=== PATIENT | female | born 1970 | race Hispanic/Latino ===

== ENCOUNTER 2018-02-13 08:03 | Inpatient (IN) | payer MEDICARE ==
[2018-02-13] VITALS (25 sets, daily range): BP systolic 79–129; BP diastolic 37–85
[~2018-02-13] VITALS: Ht 149.9 cm; Wt 70.9 kg
[2018-02-13] MEDS: SODIUM CHLORIDE 0.9% 1000ML 1,000 ML IV SCH ×2 (14:09→20:53)
[2018-02-13] MEDS ORDERED: LACTULOSE 20 GM/30 ML UDCUP PO PRN (14:15)
[2018-02-13] MEDS ORDERED: ONDANSETRON HCL 4 MG/2 ML VIAL IV PRN (14:15)
[2018-02-13] MEDS ORDERED: MORPHINE SULFATE 2 MG/ML 1ML SYG IV PRN (14:15)
[2018-02-13 14:43] LABS: BASOPHILS % (AUTO) 0.9 % (0.0-5.0); EOSINOPHILS % (AUTO) 0.1 % (0.0-8.0); HEMATOCRIT 37.9 % (36-48); LYMPHOCYTES % (AUTO) 32.2 % (21.0-51.0); MEAN CORPUSCULAR HEMOGLOBIN 34.6 pg (27.0-33.0); MEAN CORPUSCULAR HGB CONC 33.4 g/dL (32.0-36.0); MEAN CORPUSCULAR VOLUME 103.6 fL (79-99); MONOCYTES % (AUTO) 3.6 % (3.0-13.0); NEUTROPHILS % (AUTO) 63.2 % (40.0-77.0); PLATELET COUNT (AUTO) 267 K/uL (130-400); RED BLOOD CELL COUNT(AUTO) 3.66 MIL/uL (4.00-5.50); WHITE BLOOD COUNT (AUTO) 6.4 K/uL (4.8-10.8)
[2018-02-13 15:03] LABS: ALANINE AMINOTRANSFERASE 18 U/L (12-78); ALBUMIN 2.7 g/dL (3.5-5.0); ASPARTATE AMINOTRANSFERASE 16 U/L (10-37); BILIRUBIN,TOTAL 0.2 mg/dL (0.2-1.0); CARBON DIOXIDE 30 mmol/L (21-32); CHLORIDE 109 mmol/L (101-111); CREATINE KINASE, TOTAL 10 U/L (21-232); CREATININE 0.6 mg/dL (0.5-1.5); GLOMERULAR FILTR. RATE CALC 113 mL/min (>60); GLUCOSE,RANDOM 83 mg/dL (70-105); MYOGLOBIN 18 ng/mL (10-92); POTASSIUM 3.1 mmol/L (3.5-5.1); SODIUM SERUM 146 mmol/L (136-145); THYROID STIMULATING HORMONE 1.27 uIU/mL (0.36-3.74); TOTAL PROTEIN, SERUM 6.7 g/dL (6.0-8.3); TROPONIN I < 0.04 ng/mL (0.00-0.06); UREA NITROGEN, BLOOD 6 mg/dL (7-18)
[2018-02-13 15:05] LABS: HEMOGLOBIN A1C 5.1 % (4.0-6.0)
[2018-02-13 15:08] LABS: B-TYPE NATRIURETIC PEPTIDE 149 pg/mL (0-100)
[2018-02-13 15:16] LABS: INR 1.05 (0.85-1.15); PARTIAL THROMBOPLASTIN TIME 27.7 SEC (26.3-35.5)
[2018-02-13] MEDS ORDERED: MIDAZOLAM HCL 1 MG/ML 2ML VIAL ONE (16:18)
[2018-02-13] MEDS ORDERED: MEPERIDINE-PF 25 MG/ML SYG ONE (16:19)
[2018-02-13] MEDS ORDERED: CEFAZOLIN SODIUM 1 GM VIAL ONE (16:30)
[2018-02-13] MEDS ORDERED: BUPIVACAINE/PF 0.25% 50ML VIAL IJ ONE (16:33)
[2018-02-13] MEDS ORDERED: LIDOCAINE HCL 1% MDV 50ML VIAL ONE (16:33)
[2018-02-13] MEDS ORDERED: OCTYL 2-CYANOACRYLATE 1 EACH TP ONE (16:59)
[2018-02-13] MEDS ORDERED: SODIUM CHLORIDE 3% FOR INHALATION 4 ML/AMP VIAL.NEB IH ONE (18:12)
[2018-02-13] MEDS: IPRATROPIUM/ALBUTEROL SULFATE 3 ML SOLUTION IH SCH (18:47)
[2018-02-13] MEDS ORDERED: AZITHROMYCIN 500MG+NS 250ML 250 ML IV SCH (20:30)
[2018-02-13] MEDS: FAMOTIDINE/PF 20 MG/2 ML VIAL IV SCH (20:45)
[2018-02-13 22:53] LABS: CREATINE KINASE, TOTAL 26 U/L (21-232); MYOGLOBIN 22 ng/mL (10-92); TROPONIN I < 0.04 ng/mL (0.00-0.06)
[2018-02-14] MEDS: AZITHROMYCIN 500MG+NS 250ML 250 ML IV SCH ×2 (00:02→21:26)
[2018-02-14] MEDS ORDERED: SODIUM CHLORIDE 3% FOR INHALATION 4 ML/AMP VIAL.NEB IH ONE ×2 (00:34→06:04)
[2018-02-14] MEDS: IPRATROPIUM/ALBUTEROL SULFATE 3 ML SOLUTION IH SCH ×5 (01:02→23:47)
[2018-02-14] MEDS: CEFAZOLIN SODIUM 1 GM VIAL IVP SCH ×2 (02:58→10:05)
[2018-02-14 04:00] VITALS: BP 79/49
[2018-02-14] MEDS ORDERED: PHARMACY COMMUNICATION MISC SCH (06:30)
[2018-02-14 06:37] LABS: HEMATOCRIT 36.8 % (36-48); MEAN CORPUSCULAR HEMOGLOBIN 34.5 pg (27.0-33.0); MEAN CORPUSCULAR HGB CONC 33.1 g/dL (32.0-36.0); MEAN CORPUSCULAR VOLUME 104.4 fL (79-99); NUCLEATED RED BLOOD CELLS 0.1 % (0.0-0.19); PLATELET COUNT (AUTO) 187 K/uL (130-400); RED BLOOD CELL COUNT(AUTO) 3.52 MIL/uL (4.00-5.50); RED CELL DISTRIBUTION WIDTH 15.4 % (11.0-15.5); WHITE BLOOD COUNT (AUTO) 5.4 K/uL (4.8-10.8)
[2018-02-14 06:54] LABS: CARBON DIOXIDE 26 mmol/L (21-32); CHLORIDE 110 mmol/L (101-111); CREATINE KINASE, TOTAL 18 U/L (21-232); CREATININE 0.6 mg/dL (0.5-1.5); GLOMERULAR FILTR. RATE CALC 113 mL/min (>60); GLUCOSE,RANDOM 84 mg/dL (70-105); MYOGLOBIN 23 ng/mL (10-92); POTASSIUM 3.1 mmol/L (3.5-5.1); SODIUM SERUM 144 mmol/L (136-145); TROPONIN I < 0.04 ng/mL (0.00-0.06); UREA NITROGEN, BLOOD 10 mg/dL (7-18)
[2018-02-14 07:00] VITALS: BP 118/45
[2018-02-14] MEDS ORDERED: POTASSIUM CHLORIDE 20 MEQ ERTAB PO SCH (09:30)
[2018-02-14] MEDS: FAMOTIDINE/PF 20 MG/2 ML VIAL IV SCH ×2 (10:05→21:27)
[2018-02-14] MEDS: ENOXAPARIN SODIUM 40 MG/0.4 ML SYRINGE SQ SCH (10:06)
[2018-02-14] MEDS: SODIUM CHLORIDE 0.9% 1000ML 1,000 ML IV SCH ×2 (10:20→22:23)
[2018-02-14 11:00] VITALS: BP 94/48
[2018-02-14] MEDS: SODIUM CHLORIDE 3% FOR INHALATION 4 ML/AMP VIAL.NEB IH SCH ×2 (11:28→19:02)
[2018-02-14] MEDS: METHYLPREDNISOLONE SOD SUCC 40MG/ML 1ML IVP SCH ×2 (12:39→21:27)
[2018-02-14] MEDS: ACETAMINOPHEN 325 MG TAB PO PRN (15:09)
[2018-02-14 16:00] VITALS: BP 110/53
[2018-02-14 19:00] VITALS: BP 99/60
[2018-02-14 23:00] VITALS: BP 118/64
[2018-02-15] MEDS: ACETAMINOPHEN 325 MG TAB PO PRN (02:04)
[2018-02-15 03:00] VITALS: BP 97/55
[2018-02-15] MEDS: METHYLPREDNISOLONE SOD SUCC 40MG/ML 1ML IVP SCH ×3 (04:02→20:00)
[2018-02-15] MEDS: SODIUM CHLORIDE 0.9% 1000ML 1,000 ML IV SCH (04:04)
[2018-02-15 04:14] LABS: HEMATOCRIT 30.6 % (36-48); MEAN CORPUSCULAR HEMOGLOBIN 35.4 pg (27.0-33.0); MEAN CORPUSCULAR HGB CONC 34.2 g/dL (32.0-36.0); MEAN CORPUSCULAR VOLUME 103.6 fL (79-99); PLATELET COUNT (AUTO) 199 K/uL (130-400); RED BLOOD CELL COUNT(AUTO) 2.96 MIL/uL (4.00-5.50); RED CELL DISTRIBUTION WIDTH 15.3 % (11.0-15.5); WHITE BLOOD COUNT (AUTO) 6.9 K/uL (4.8-10.8)
[2018-02-15 04:25] LABS: CREATININE 0.6 mg/dL (0.5-1.5); POTASSIUM 3.5 mmol/L (3.5-5.1)
[2018-02-15] MEDS: IPRATROPIUM/ALBUTEROL SULFATE 3 ML SOLUTION IH SCH ×3 (06:56→19:13)
[2018-02-15 07:00] VITALS: BP 120/66
[2018-02-15] MEDS ORDERED: PHEN100C9 PO (10:23)
[2018-02-15] MEDS ORDERED: FURO20TA4 PO (10:23)
[2018-02-15] MEDS ORDERED: OLAN7.5T9 PO (10:23)
[2018-02-15] MEDS ORDERED: ZONI25CA3 PO (10:23)
[2018-02-15] MEDS ORDERED: POTA-79 PO (10:23)
[2018-02-15] MEDS ORDERED: EZET10TA26 PO (10:23)
[2018-02-15] MEDS ORDERED: LEVO100T12 PO (10:23)
[2018-02-15] MEDS ORDERED: LORA10TA7 PO (10:23)
[2018-02-15] MEDS ORDERED: DIVA-76 PO (10:23)
[2018-02-15] MEDS ORDERED: MONT10TA24 PO (10:23)
[2018-02-15] MEDS ORDERED: ERGO500014 PO (10:23)
[2018-02-15] MEDS ORDERED: PRAV40TA3 PO (10:23)
[2018-02-15] MEDS ORDERED: LEVE750T10 PO (10:23)
[2018-02-15] MEDS: FAMOTIDINE/PF 20 MG/2 ML VIAL IV SCH ×2 (10:33→22:16)
[2018-02-15] MEDS: ENOXAPARIN SODIUM 40 MG/0.4 ML SYRINGE SQ SCH (10:34)
[2018-02-15 11:00] VITALS: BP 98/55
[2018-02-15 11:24] LABS: PHENYTOIN (DILANTIN) 16.6 mcg/mL (10.0-20.0)
[2018-02-15] MEDS: SODIUM CHLORIDE 3% FOR INHALATION 4 ML/AMP VIAL.NEB IH SCH ×2 (11:31→19:39)
[2018-02-15 11:56] LABS: VALPROIC ACID < 3 mcg/mL (50-100)
[2018-02-15] MEDS: PHENYTOIN SODIUM 100 MG ERCAP PO SCH ×3 (12:23→22:16)
[2018-02-15] MEDS: ZONISAMIDE 100 MG PO SCH ×2 (12:31→21:00)
[2018-02-15 16:00] VITALS: BP 112/66
[2018-02-15 20:36] VITALS: BP 98/54
[2018-02-15] MEDS: OLANZAPINE 5 MG TAB PO SCH (22:15)
[2018-02-15] MEDS: DIVALPROEX SODIUM 250 MG TABLET.DR PO SCH (22:15)
[2018-02-15] MEDS: LEVETIRACETAM 500 MG TABLET PO SCH (22:16)
[2018-02-15] MEDS: AZITHROMYCIN 500MG+NS 250ML 250 ML IV SCH (22:18)
[2018-02-15 23:43] VITALS: BP 116/60
[2018-02-16] MEDS: IPRATROPIUM/ALBUTEROL SULFATE 3 ML SOLUTION IH SCH ×5 (02:25→23:15)
[2018-02-16 04:09] VITALS: BP 116/70
[2018-02-16] MEDS: METHYLPREDNISOLONE SOD SUCC 40MG/ML 1ML IVP SCH ×3 (04:18→22:55)
[2018-02-16 05:39] LABS: HEMATOCRIT 30.2 % (36-48); MEAN CORPUSCULAR HGB CONC 33.6 g/dL (32.0-36.0); PLATELET COUNT (AUTO) 178 K/uL (130-400); RED BLOOD CELL COUNT(AUTO) 2.91 MIL/uL (4.00-5.50); RED CELL DISTRIBUTION WIDTH 15.5 % (11.0-15.5); WHITE BLOOD COUNT (AUTO) 4.5 K/uL (4.8-10.8)
[2018-02-16 06:03] LABS: ALBUMIN 2.3 g/dL (3.5-5.0); BILIRUBIN,TOTAL 0.1 mg/dL (0.2-1.0); CREATININE 0.5 mg/dL (0.5-1.5); POTASSIUM 3.4 mmol/L (3.5-5.1); TOTAL PROTEIN, SERUM 5.8 g/dL (6.0-8.3)
[2018-02-16] MEDS: SODIUM CHLORIDE 3% FOR INHALATION 4 ML/AMP VIAL.NEB IH SCH ×5 (06:40→23:31)
[2018-02-16] MEDS: LEVOTHYROXINE 100 MCG TABLET PO SCH (07:05)
[2018-02-16 08:31] VITALS: BP 121/56
[2018-02-16] MEDS: ZONISAMIDE 100 MG PO SCH ×3 (09:00→21:00)
[2018-02-16] MEDS: ATORVASTATIN CALCIUM 10 MG TABLET PO SCH (11:24)
[2018-02-16] MEDS: LORATADINE 10 MG TABLET PO SCH (11:24)
[2018-02-16] MEDS: PHENYTOIN SODIUM 100 MG ERCAP PO SCH ×4 (11:24→22:55)
[2018-02-16] MEDS: LEVETIRACETAM 500 MG TABLET PO SCH ×2 (11:24→22:55)
[2018-02-16] MEDS: DIVALPROEX SODIUM 250 MG TABLET.DR PO SCH ×2 (11:24→22:56)
[2018-02-16] MEDS: MONTELUKAST SODIUM 10 MG TAB PO SCH (11:25)
[2018-02-16] MEDS: FUROSEMIDE 20 MG TABLET PO SCH (11:25)
[2018-02-16] MEDS: POTASSIUM CHLORIDE 20 MEQ ERTAB PO SCH (11:26)
[2018-02-16] MEDS: EZETIMIBE 10 MG TAB PO SCH (11:26)
[2018-02-16] MEDS: ENOXAPARIN SODIUM 40 MG/0.4 ML SYRINGE SQ SCH (11:27)
[2018-02-16] MEDS: FAMOTIDINE/PF 20 MG/2 ML VIAL IV SCH ×2 (11:27→22:55)
[2018-02-16 11:58] VITALS: BP 111/56
[2018-02-16 16:48] VITALS: BP 105/54
[2018-02-16 19:58] VITALS: BP 95/45
[2018-02-16] MEDS: OLANZAPINE 5 MG TAB PO SCH (22:55)
[2018-02-17] VITALS: BP 130/67
[2018-02-17 03:38] VITALS: BP 107/55
[2018-02-17] MEDS: METHYLPREDNISOLONE SOD SUCC 40MG/ML 1ML IVP SCH ×2 (04:00→12:16)
[2018-02-17] MEDS: IPRATROPIUM/ALBUTEROL SULFATE 3 ML SOLUTION IH SCH ×4 (05:10→23:34)
[2018-02-17] MEDS: SODIUM CHLORIDE 3% FOR INHALATION 4 ML/AMP VIAL.NEB IH SCH ×4 (05:18→23:34)
[2018-02-17] MEDS: LEVOTHYROXINE 100 MCG TABLET PO SCH (06:51)
[2018-02-17 08:28] VITALS: BP 100/64
[2018-02-17] MEDS: LEVETIRACETAM 500 MG TABLET PO SCH ×2 (08:42→23:16)
[2018-02-17] MEDS: ATORVASTATIN CALCIUM 10 MG TABLET PO SCH ×2 (08:42→23:16)
[2018-02-17] MEDS: EZETIMIBE 10 MG TAB PO SCH (08:43)
[2018-02-17] MEDS: POTASSIUM CHLORIDE 20 MEQ ERTAB PO SCH (08:43)
[2018-02-17] MEDS: MONTELUKAST SODIUM 10 MG TAB PO SCH (08:43)
[2018-02-17] MEDS: DIVALPROEX SODIUM 250 MG TABLET.DR PO SCH ×2 (08:43→23:16)
[2018-02-17] MEDS: PHENYTOIN SODIUM 100 MG ERCAP PO SCH ×4 (08:43→23:16)
[2018-02-17] MEDS: LORATADINE 10 MG TABLET PO SCH (08:43)
[2018-02-17] MEDS: FUROSEMIDE 20 MG TABLET PO SCH (08:44)
[2018-02-17] MEDS: FAMOTIDINE/PF 20 MG/2 ML VIAL IV SCH ×2 (08:44→23:15)
[2018-02-17] MEDS: ENOXAPARIN SODIUM 40 MG/0.4 ML SYRINGE SQ SCH (08:45)
[2018-02-17] MEDS: ZONISAMIDE 100 MG PO SCH ×3 (09:00→21:00)
[2018-02-17] MEDS ORDERED: POTASSIUM CHLORIDE 20 MEQ ERTAB PO SCH (11:00)
[2018-02-17 12:48] VITALS: BP 129/67
[2018-02-17 17:13] VITALS: BP 125/62
[2018-02-17 20:00] VITALS: BP 102/52
[2018-02-17] MEDS: OLANZAPINE 5 MG TAB PO SCH (23:15)
[2018-02-17] MEDS: ACETAMINOPHEN 325 MG TAB PO PRN (23:15)
[2018-02-17] MEDS: PREDNISONE 20 MG TABLET PO SCH (23:16)
[2018-02-18] VITALS: BP 97/46
[2018-02-18 04:00] VITALS: BP 112/69
[2018-02-18 04:37] LABS: BASOPHILS % (AUTO) 0.7 % (0.0-5.0); MEAN CORPUSCULAR HEMOGLOBIN 34.8 pg (27.0-33.0); MEAN CORPUSCULAR HGB CONC 33.2 g/dL (32.0-36.0); MEAN CORPUSCULAR VOLUME 104.6 fL (79-99); MONOCYTES % (AUTO) 4.7 % (3.0-13.0); NEUTROPHILS % (AUTO) 52.6 % (40.0-77.0); PLATELET COUNT (AUTO) 212 K/uL (130-400); RED BLOOD CELL COUNT(AUTO) 3.15 MIL/uL (4.00-5.50); RED CELL DISTRIBUTION WIDTH 15.7 % (11.0-15.5); WHITE BLOOD COUNT (AUTO) 4.2 K/uL (4.8-10.8)
[2018-02-18 05:11] LABS: ALBUMIN 2.6 g/dL (3.5-5.0); BILIRUBIN,TOTAL 0.2 mg/dL (0.2-1.0); CREATININE 0.6 mg/dL (0.5-1.5); TOTAL PROTEIN, SERUM 6.3 g/dL (6.0-8.3)
[2018-02-18] MEDS: IPRATROPIUM/ALBUTEROL SULFATE 3 ML SOLUTION IH SCH ×2 (06:12→11:08)
[2018-02-18] MEDS: SODIUM CHLORIDE 3% FOR INHALATION 4 ML/AMP VIAL.NEB IH SCH ×2 (06:12→11:08)
[2018-02-18 08:00] VITALS: BP 122/67
[2018-02-18] MEDS: LEVOTHYROXINE 100 MCG TABLET PO SCH (08:05)
[2018-02-18] MEDS ORDERED: PRED20TA3 PO (08:50)
[2018-02-18] MEDS: ZONISAMIDE 100 MG PO SCH (09:00)
[2018-02-18] MEDS: PREDNISONE 20 MG TABLET PO SCH (09:10)
[2018-02-18] MEDS: LEVETIRACETAM 500 MG TABLET PO SCH (09:10)
[2018-02-18] MEDS: DIVALPROEX SODIUM 250 MG TABLET.DR PO SCH (09:10)
[2018-02-18] MEDS: FUROSEMIDE 20 MG TABLET PO SCH (09:11)
[2018-02-18] MEDS: MONTELUKAST SODIUM 10 MG TAB PO SCH (09:11)
[2018-02-18] MEDS: LORATADINE 10 MG TABLET PO SCH (09:11)
[2018-02-18] MEDS: POTASSIUM CHLORIDE 20 MEQ ERTAB PO SCH (09:11)
[2018-02-18] MEDS: EZETIMIBE 10 MG TAB PO SCH (09:11)
[2018-02-18] MEDS: FAMOTIDINE/PF 20 MG/2 ML VIAL IV SCH (09:12)
[2018-02-18] MEDS: ENOXAPARIN SODIUM 40 MG/0.4 ML SYRINGE SQ SCH (09:12)
[2018-02-18] MEDS: PHENYTOIN SODIUM 100 MG ERCAP PO SCH ×2 (09:16→13:44)
[2018-02-18 12:00] VITALS: BP 116/60
[2018-02-22] MEDS ORDERED: ERGOCALCIFEROL (VITAMIN D2) 50,000 UNIT CAPSULE PO SCH (09:00)
== END 2018-02-18 15:00 | disposition home or self-care (01) | DRG 242 ==
LOC: 2CH 09:28 → OBSVTOIN 09:28 → 2CH 09:52 → 2DH 20:54 → 3AH 02-15 20:12
PROVIDERS: ADMIT Internal Medicine; ATTEND Internal Medicine
PROC: 02PA0MZ Removal of Cardiac Lead from Heart, Open Approach (ICD-10-PCS; principal; 2018-02-13)
PROC: 0JH606Z Insertion of Pacemaker, Dual Chamber into Chest Subcutaneous Tissue and Fascia, Open Approach (ICD-10-PCS; 2018-02-13)
PROC: 02HK3JZ Insertion of Pacemaker Lead into Right Ventricle, Percutaneous Approach (ICD-10-PCS; 2018-02-13)
PROC: 0JPT0PZ Removal of Cardiac Rhythm Related Device from Trunk Subcutaneous Tissue and Fascia, Open Approach (ICD-10-PCS; 2018-02-13)
PROC: 02H63JZ Insertion of Pacemaker Lead into Right Atrium, Percutaneous Approach (ICD-10-PCS; 2018-02-13)
DX: I45.9 Conduction disorder, unspecified (principal); J15.7 Pneumonia due to Mycoplasma pneumoniae; Z95.0 Presence of cardiac pacemaker; I10 Essential (primary) hypertension; E78.5 Hyperlipidemia, unspecified; E66.01 Morbid (severe) obesity due to excess calories; Q90.9 Down syndrome, unspecified; J98.01 Acute bronchospasm; G40.909 Epilepsy, unspecified, not intractable, without status epilepticus; I95.9 Hypotension, unspecified; Z99.3 Dependence on wheelchair; E66.9 Obesity, unspecified; Z68.31 Body mass index [BMI] 31.0-31.9, adult
CPT/HCPCS: 33228; 36415; 70450; 71045; 80048; 80053; 80164; 80177; 80185; 80339; 82550; 83036; 83874; 83880; 84443; 84484; 85025; 85027; 85610; 85730; 87071; 87205; 93005; 94640; 94664; 94667; 94668; 97039; 99156; 99157; C1785; J0456; J0690; J1650; J2175; J2250; J2920; J3490; J7030